=== PATIENT | female | born 1935 ===

== ENCOUNTER 2016-09-16 07:42 | Day surgery (SDC) | payer MEDICARE, MEDICAID ==
[2016-09-11 11:24] VITALS: BMI 26.6
[2016-09-16] MEDS ORDERED: Propofol 10 mg/ml Inj (20 ML) ONE (09:07)
[2016-09-16] MEDS ORDERED: Midazolam 2 MG/2 ML VIAL ONE (09:07)
[2016-09-16] MEDS ORDERED: Lactated Ringer's 1,000 ML IV ONE (09:10)
[2016-09-16] MEDS ORDERED: cefOXitin IV 1 gm in Dextrose 1 GM/50 ML BAG IVPB ONE (09:25)
[2016-09-16] MEDS ORDERED: HYDROmorphone 0.5 mg/0.5 ml ISec IVP PRN (09:54)
[2016-09-16] MEDS ORDERED: Lactated Ringer's 1,000 ML IV SCH (10:00)
[2016-09-16 11:15] VITALS: O2SAT 98
[2016-09-16 11:39] VITALS: BP 130/72; PULSE 80; RESP 20; TEMP 97.8
--- NOTE | 2016-09-20 01:59 | OP ---
PROCEDURE DATE: 09/16/2016 PREOPERATIVE DIAGNOSES: Postmenopausal bleeding, atrophic endometrium. POSTOPERATIVE DIAGNOSES: Small cystic areas with atrophic endometrium PRIMARY SURGEON: Arleen Chester MD ANESTHESIA: LMA. OPERATIVE PROCEDURE: Hysteroscopy, directed dilation and curettage. OPERATIVE FINDINGS: Atrophic endometrium except for small cystic area, which was sampled adequately and circumferentially around the uterus. There was no evidence of perforation at the end of the case . ESTIMATED BLOOD LOSS: 5 mL. NORMAL SALINE DEFICIT: 100 mL. OPERATIVE PROCEDURE: The patient was taken to the operating room and timeout was performed. She was placed in dorsal lithotomy and prepped in the usual sterile fashion. After prepping, the patient wa s examined under anesthesia. The cervix was then grasped with a single tooth tenaculum and serially dilated to allow passage of MyoSure hysteroscope. The findings above were visualized. The MyoSure d evice was used to perform directed curettage around the uterus in addition to the cystic area. There was no evidence of perforation at the end of the case. All instruments were removed from the patien t. All counts were correct at the end of the case. SPECIMENS REMOVED: Directed curettings and polyp. CONDITION: Stable for PACU. Arleen Chester MD cc: [id number] TT: 09/20/2016 01:52:29 nc
== END 2016-09-16 11:30 | disposition home or self-care (01) ==
LOC: C.SDS 07:42
PROVIDERS: ATTEND Obstetrics & Gynecology
DX: N84.0 Polyp of corpus uteri (principal); N95.0 Postmenopausal bleeding
CPT/HCPCS: 36415; 58558; 86850; 86900; 88305; J0694; J2250; J2704; J3010; J7120